=== PATIENT | female | born 1990 | race Caucasian/White ===

== ENCOUNTER 2017-07-07 12:58 | Emergency (ER) | payer OTHER ==
[2017-07-07] MEDS: LORAZEPAM 1 MG TAB PO (13:34)
== END 2017-07-07 14:54 | disposition home or self-care (01) ==
LOC: FTE 12:58
DX: F41.9 Anxiety disorder, unspecified (principal); R20.0 Anesthesia of skin; R06.02 Shortness of breath
CPT/HCPCS: 82962; 93005; 99283-25